=== PATIENT | female | born 1940 | race Caucasian/White ===

== ENCOUNTER → 2019-01-11 | Day surgery (SDC) | payer OTHER ==
[~2019-01-11] MED LIST: ALEVE220 M1 PO; AVAPRO75 MG PO; CEFADROXIL500 MG PO; METFORMIN HCL500 MG PO; PERCOCET 5-3251 EACH PO; TENORMIN50 MG PO
== END | disposition home or self-care (01) ==
LOC: CIR.AMB 08:03
DX: S52.571A Other intraarticular fracture of lower end of right radius, initial encounter for closed fracture (principal); M81.0 Age-related osteoporosis without current pathological fracture
CPT/HCPCS: 25609; C1776